=== PATIENT | female | born 1955 | race Caucasian/White ===

== ENCOUNTER 2024-05-22 13:39 | Emergency (ER) | payer MEDICARE, BC, SELFPAY ==
[2024-05-22 14:25] VITALS: BP 161/88; PULSE 79; RESP 14; TEMP 36.7; O2SAT 97; BMI 26.5
--- NOTE | 2024-05-22 14:38 | DI.US.S_ITS ---
PROCEDURE: US PERIPH VENOUS LOW EXTREM LT INDICATIONS: calf swelling TECHNIQUE: Real-time imaging, as well as color and pulse Doppler interrogation, were performed of the lower extremity deep veins from the inguinal ligament to the popliteal fossa, with documentation of the visualized calf veins. COMPARISON: None. FINDINGS: The common femoral, femoral, popliteal, and the visualized calf veins are normally compressible, and free of intraluminal thrombus. Color and pulse Doppler demonstrate normal phasic intraluminal flow. There is normal augmentation response to distal compression maneuver. Note is made of a complex fluid collection at mid calf measuring up to 1.7 x 7.6 x 8.0 cm. Appearance this could represent a hematoma. IMPRESSION: No findings of lower extremity deep venous thrombosis. Complex fluid collection mid calf as discussed above measuring up to 8.6 cm in maximal dimension, suspicious for representing a hematoma. Please correlate for prior trauma. Dictated by: Joaquin Zamarripa M.D. on 05/22/2024 at 15:20 Approved by: Joaquin Zamarripa M.D. on 05/22/2024 at 15:21
--- NOTE | 2024-05-22 17:14 | ED.LOWEXIN ---
HPI - Extremity Injury (Lower) <ELODIA Eric - Last Filed: 05/22/24 17:36> General Chief Complaint: Extremity Injury, Lower Stated Complaint: L calf swelling Time Seen by Provider: 05/22/24 15:12 Source: patient Mode of arrival: Ambulatory History of Present Illness HPI Narrative: 68-year-old female, never smoker, presents to the emergency department with left calf swelling x1 week. Patient denies any trauma to her leg, but due to history hip replacement surgery, wants to make sure she does not have an infection or a DVT. Patient is scheduled to drive home tomorrow and wants to make sure she is okay to sit in a car for a few hours. Patient denies any chest pain, shortness of breath, etc.. Patient able to ambulate without difficulty. Review of Systems <ELODIA Eric - Last Filed: 05/22/24 17:36> Review of Systems Narrative: Narrative: See HPI. GENERAL: Denies chills, fatigue, fever, sweats. HEENT: Denies sinus pain, ear pain, sore throat, difficulty swallowing, dizziness. RESPIRATORY: Denies dyspnea, cough, wheezing, sputum. CARDIOVASCULAR: Denies chest pain, palpitations, edema. GASTROINTESTINAL: Denies nausea, vomiting, abdominal pain, diarrhea, constipation. : Denies dysuria, frequency, incontinence, hematuria, urinary retention, flank pain. MSK: Denies weakness, joint pain, or bony pain. Endorses left calf pain and swelling. SKIN: Denies rash, skin lesions, or pruritis. NEUROLOGIC: Denies weakness, dizziness, headache, numbness, confusion. PSYCHIATRIC: No concerning psychosocial issues. Patient History <ELODIA Eric - Last Filed: 05/22/24 17:36> Social History Smoking Status: Never smoker Smoking Status: Never smoker alcohol intake frequency: holidays/special occasions only Substance Use Type: does not use Exam <ELODIA Eric - Last Filed: 05/22/24 17:36> Narrative Exam Narrative: Exam Narrative: GENERAL: This is a well-nourished, well-developed patient, in no acute distress. HEAD: Atraumatic. Normocephalic. EYES: Pupils equal round and reactive. Extraocular motions intact. No scleral icterus, injection or drainage. ENT: Nose without bleeding, purulent drainage. Airway patent. NECK: Trachea midline. No JV. CARDIOVASCULAR: Regular rate and rhythm without murmurs, peripheral pulses intact, cap refill <2 sec. RESPIRATORY: Normal respiratory rate and effort. MSK: Moves all extremities. Normal range of motion, no clubbing or edema. Neurovascularly intact. Left calf significantly increased in size with no redness or warmth. Measurements: Right calf 390 mm, left calf 420 mm, right ankle 230 mm, left ankle 242 mm. NEURO: A&O x 3. SKIN: Warm, dry, no rashes or lesions noted. Initial Vital Signs Initial Vital Signs: Vital Signs Temperature 98.1 F 05/22/24 14:25 Pulse Rate 79 05/22/24 14:25 Respiratory Rate 14 05/22/24 14:25 Blood Pressure 161/88 H 05/22/24 14:25 Pulse Oximetry 97 05/22/24 14:25 Oxygen Delivery Method Room Air 05/22/24 14:25 Reviewed <Saida Camara DO - Last Filed: 05/31/24 13:36> Initial Vital Signs Initial Vital Signs: Vital Signs Temperature 98.1 F 05/22/24 14:25 Pulse Rate 79 05/22/24 14:25 Respiratory Rate 14 05/22/24 14:25 Blood Pressure 161/88 H 05/22/24 14:25 Pulse Oximetry 97 05/22/24 14:25 Oxygen Delivery Method Room Air 05/22/24 14:25 Scores <ELODIA Eric - Last Filed: 05/22/24 17:36> Milagro Criteria for DVT Active Cancer (Treatment within 6 months): No Bedridden recently >3 days or major surgery within 4 weeks: No Calf Swelling >3cm compared to other leg: Yes Collateral (nonvericose) superficial veins present: No Entire leg swollen: No Localized tenderness along the deep vein system: No Pitting edema, confined to symtomatic leg: No Paralysis, paresis, or recent plaster immobilization of ext: No Previously documented DVT: No Alternative dx to DVT as likely or more likely: Yes Milagro criteria for DVT: -1 <DO Fareed Nassar Last Filed: 05/31/24 13:36> Milagro Criteria for DVT Wells' criteria for DVT: -1 Course <ELODIA Eric - Last Filed: 05/22/24 17:36> Orders Ordered: ED Orders 05/22/24 14:38 US perip venous low extrem lt Stat Vital Signs Vital signs: Vital Signs - 8 hr 05/22/24 14:25 Temperature 98.1 F Pulse Rate 79 Respiratory Rate 14 Blood Pressure 161/88 H Pulse Oximetry 97 Oxygen Delivery Method Room Air <Saida Camara DO - Last Filed: 05/31/24 13:36> Orders Ordered: ED Orders 05/22/24 14:38 [facility] venous low extrem lt Stat Vital Signs Vital signs: Vital Signs - 8 hr 05/22/24 14:25 Temperature 98.1 F Pulse Rate 79 Respiratory Rate 14 Blood Pressure 161/88 H Pulse Oximetry 97 Oxygen Delivery Method Room Air MDM - Extremity Injury (Lower) <ELODIA Eric - Last Filed: 05/22/24 17:36> Differential Diagnosis Differential diagnosis: Likely other (DVT, hematoma, edema) Imaging Data US - DVT: Radiologist's Impression: [place] [address] Ultrasound Report Signed Patient: Ines Ferrell MR#: [id number] : 1955 Acct:[id number] Age/Sex: 68 / F Date of Service: 05/22/24 Loc: ED Accession Number: [id number] Procedure: US [facility] venous low extrem lt Ordering Provider: Saida Camara D.O. PROCEDURE: US PERIP VENOUS LOW EXTREM LT INDICATIONS: calf swelling TECHNIQUE: Real-time imaging, as well as color and pulse Doppler interrogation, were performed of the lower extremity deep veins from the inguinal ligament to the popliteal fossa, with documentation of the visualized calf veins. COMPARISON: None. FINDINGS: The common femoral, femoral, popliteal, and the visualized calf veins are normally compressible, and free of intraluminal thrombus. Color and pulse Doppler demonstrate normal phasic intraluminal flow. There is normal augmentation response to distal compression maneuver. Note is made of a complex fluid collection at mid calf measuring up to 1.7 x 7.6 x 8.0 cm. Appearance this could represent a hematoma. IMPRESSION: No findings of lower extremity deep venous thrombosis. Complex fluid collection mid calf as discussed above measuring up to 8.6 cm in maximal dimension, suspicious for representing a hematoma. Please correlate for prior trauma. Dictated by: Joaquin Zamarripa M.D. on 05/22/2024 at 15:20 Approved by: Joaquin Zamarripa M.D. on 05/22/2024 at 15:21 MDM Narrative Medical decision making narrative: 68-year-old female with left calf swelling. Assessment was encouraging with a wells criteria of -1. Ultrasound obtained and revealed collection of fluid but no DVT. No signs of cellulitis noted. Recommended elevation of the leg along with hot or cold compresses as needed for comfort. Discussed plan of care and return precautions with patient, who verbalized understanding and was agreeable with course of action. Discharge Plan Departure Patient Disposition: Home Clinical Impression: Lower leg edema Activity Restrictions/Additional Instructions: *You have been diagnosed with left calf swelling. My assessment was encouraging and your ultrasound was negative for a deep vein thrombosis. There is a fluid collection in there, suspected to be a hematoma, which could have occurred from any type of trauma. As we discussed, please try elevating your leg each evening, to get the swelling to reduce. For comfort, you can apply warm or cool compresses as needed. For any worsening symptoms that includes difficulty breathing, chest pain or intolerable pain, please return to the emergency department. Otherwise, please follow-up with your family doctor as needed. *What to do: *Please continue to take your regular medications as directed. [ ] New medication prescriptions sent to your pharmacy: [ ] [ ] New medication written as a paper prescription [x ] No new medications given *Please follow up with your primary care provider in 2-3 days, call for an appointment. Let them know you were seen in the Emergency Department and that we ask that you be seen in follow up. We will electronically transmit a record of today's note if your PCP is in our system *If you do not have a primary care provider please contact the [facility] Resource line at [phone]. They will ask some questions about your medical history and help get you set up with a doctor in the community. ? Return to ER if you should have any new, worsening or concerning symptoms, such as worsening pain, severe headache, confusion, chest pain, difficulty breathing, fever greater than 101 F, shaking chills, persistent vomiting to the point that you cannot drink fluids, or other new or worsening symptoms. Stand Alone Forms: Patient Portal/API ED Sign-out <Saida Camara, DO - Last Filed: 05/31/24 13:36> Cosign ED Attending Cosignature Attestation: I was available for consultation.
== END 2024-05-22 17:35 | disposition home or self-care (01) ==
PROVIDERS: Emergency Provider Registered Nurse
DX: R60.0 Localized edema (principal)
CPT/HCPCS: 93971; 99281; 99282